=== PATIENT | male | born 1950 | race Hispanic/Latino ===

== ENCOUNTER 2017-10-26 21:47 | Emergency (ER) | payer MEDICARE ==
[~2017-10-26] VITALS: Ht 172.7 cm; Wt 77.6 kg
== END 2017-10-26 22:56 | disposition left against medical advice (07) ==
LOC: FSED 21:47
DX: L03.031 Cellulitis of right toe (principal); L02.611 Cutaneous abscess of right foot; E11.40 Type 2 diabetes mellitus with diabetic neuropathy, unspecified
CPT/HCPCS: 99282